=== PATIENT | female | born 1965 | race Caucasian/White ===

== ENCOUNTER → 2017-09-19 | Outpatient (CLI) | payer OTHER ==
--- NOTE | 2017-09-20 09:37 | KCIC ---
DATE: 09/19/2017 EXAM: MAMMO TAYO SCREENING BILATERAL HISTORY: Screening. COMPARISON: 03/02/2016 and 02/27/2015. This study was interpreted with the benefit of Computerized Aided Detection (CAD). FINDINGS: Tiny well-defined densities in both breasts appear stable. No new mass or malignant appearing microcalcifications are seen. There are benign calcifications bilaterally. The axillae are unremarkable. Breast Density: HETERO The breast parenchyma is heterogeneously dense, which could reduce sensitivity of mammography. Breast parenchyma level C. IMPRESSION: No mammographic features suspicious for malignancy are identified. BI-RADS CATEGORY: 2 BENIGN FINDING(S) RECOMMENDED FOLLOW-UP: 12M 12 MONTH FOLLOW-UP PQRS compliance statement: Patient information was entered into a reminder system with a target due date 09/19/2018 for the next mammogram. Mammography is a sensitive method for finding small breast cancers, but it does not detect them all and is not a substitute for careful clinical examination. A negative mammogram does not negate a clinically suspicious finding and should not result in delay in biopsying a clinically suspicious abnormality. "Our facility is accredited by the [employer] Mammography Program."
== END | disposition home or self-care (01) ==
LOC: KCIC MAMMO 16:59
PROVIDERS: ATTEND Obstetrics & Gynecology
DX: Z12.31 Encounter for screening mammogram for malignant neoplasm of breast (principal)
CPT/HCPCS: 77063; G0202; 77067

== ENCOUNTER → 2018-08-17 | Outpatient (CLI) | payer OTHER ==
--- NOTE | 2018-08-17 15:54 | KCIC ---
Indication: Lumbar pain TECHNIQUE: 3 views of the lumbar spine COMPARISON: None FINDINGS: There is very mild levoscoliosis of the upper lumbar spine. There are 5 lumbar type vertebral bodies. Mild loss of anterior superior vertebral body height of L1 vertebral body. Multilevel intervertebral disc space narrowing is seen with small osteophyte formation. Moderate multilevel facet arthropathy. IMPRESSION: 1. Moderate multilevel degenerative disc disease of the lower lumbar spine. 2. Questionable minimal anterior superior compression deformity of the L1 vertebral body, age indeterminate. Electronically signed by: Sideny Slaughter DO (08/17/2018 3:51 PM) [id number]
== END | disposition home or self-care (01) ==
LOC: KCIC 10:57
PROVIDERS: ATTEND Nurse Practitioner Family
DX: M51.36 Other intervertebral disc degeneration, lumbar region (principal); M48.061 Spinal stenosis, lumbar region without neurogenic claudication; M25.78 Osteophyte, vertebrae; M12.88 Other specific arthropathies, not elsewhere classified, other specified site
CPT/HCPCS: 72100

== ENCOUNTER → 2018-08-30 | Outpatient (CLI) | payer OTHER ==
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
== END | disposition home or self-care (01) ==
LOC: KCIC MRI 07:33
PROVIDERS: ATTEND Nurse Practitioner Family
DX: S32.010D Wedge compression fracture of first lumbar vertebra, subsequent encounter for fracture with routine healing (principal); M51.27 Other intervertebral disc displacement, lumbosacral region; M41.86 Other forms of scoliosis, lumbar region; M48.061 Spinal stenosis, lumbar region without neurogenic claudication; M51.34 Other intervertebral disc degeneration, thoracic region; M48.07 Spinal stenosis, lumbosacral region; M12.88 Other specific arthropathies, not elsewhere classified, other specified site; V86.95XD Unspecified occupant of 3- or 4- wheeled all-terrain vehicle (ATV) injured in nontraffic accident, subsequent encounter
CPT/HCPCS: 72148

== ENCOUNTER → 2018-09-07 | Outpatient (CLI) | payer OTHER ==
--- NOTE | 2018-09-07 15:42 | RAD ---
Transabdominal transvaginal sonography of the pelvis Clinical indications: Postmenopausal bleeding. Transabdominal sonography: The uterus is anteverted in position. The longitudinal and AP and transverse dimensions of the uterus are 7.1 cm and 3.6 cm and 5.1 cm respectively. The endometrial canal is poorly visualized. It measures 12 mm in thickness by transabdominal exam which is considered abnormal for postmenopausal patient. The lower portion of the uterus is poorly visualized. Therefore, transvaginal sonography will be performed. The right ovary is not visualized. The left ovary is not visualized. No adnexal mass or free fluid is evident. Transvaginal sonography: The uterus is poorly visualized. The endometrial canal is poorly visualized. Small nabothian cyst of the cervix is evident. There is a 3.1 cm hypoechoic fibroid within the lower left side of the uterus posteriorly just above the cervix. The right ovary is not visualized. The left ovary is normal and measures 1.8 cm and 2.6 cm and 1.6 cm in size. No adnexal mass or free fluid is evident. IMPRESSION: 3.1 cm uterine fibroid. The endometrial canal is poorly visualized in this study. It measures 12 mm in thickness by transabdominal exam which is abnormal for postmenopausal patient. Since the endometrial canal is poorly visualized, noncontrast MRI study of the pelvis may be helpful for further evaluation if clinically needed. The right ovary is not visualized. Electronically signed by: Ronak Hernandez MD (09/07/2018 3:38 PM) [facility]
== END | disposition home or self-care (01) ==
LOC: US 08:13
PROVIDERS: ATTEND Obstetrics & Gynecology
DX: D25.9 Leiomyoma of uterus, unspecified (principal); N88.8 Other specified noninflammatory disorders of cervix uteri
CPT/HCPCS: 76830; 76856

== ENCOUNTER → 2018-11-06 | Outpatient (CLI) | payer OTHER ==
[~2018-11-06] MED LIST: CHOL10003 PO; LORA10CA PO; MAGN400C PO; MULT1TAB52 PO; NAPR220C4 PO; Vitamin B12 inj
--- NOTE | 2018-11-07 16:03 | KCIC ---
Bilateral digital screening mammograms with 3-D tomosynthesis: Reason for examination: Routine screening. Comparison is made to previous studies dated back to 02/27/2015. Bilateral mammograms in CC and oblique projections were obtained with 2-D imaging and 3-D tomosynthesis imaging on a Siemens Inspiration unit and reviewed on the workstation. Interpretation was made with the benefit of CAD. The skin and nipples show no abnormalities. No abnormal axillary lymph nodes are seen. The breast parenchyma shows scattered fatty and fibroglandular density. (Breast density: Category B.) There continues to be a nodular density anterior medially in the left breast which is stable. There is also a tiny nodule consistent with an intramammary lymph node probably at the 9:30 C position of the right breast which is stable. There are no new dominant masses, suspicious calcifications or architectural distortion. Benign calcifications are present. Impression: No evidence of malignancy. Recommend routine screening. BI-RAD Category 2: Benign. "Our facility is accredited by the [employer] Mammography [employer]." This patient's information has been entered into a reminder system for the patient to be notified with the results of her examination and a target date for the next mammogram. Electronically signed by: Mary Leo MD (11/07/2018 3:59 PM) [id number]
== END | disposition home or self-care (01) ==
LOC: KCIC MAMMO 17:19
PROVIDERS: ATTEND Obstetrics & Gynecology
DX: Z12.31 Encounter for screening mammogram for malignant neoplasm of breast (principal)
CPT/HCPCS: 77063; 77067

== ENCOUNTER → 2019-01-24 | Outpatient (CLI) | payer OTHER ==
[~2019-01-24] MED LIST changes: +IOHEXOL 180 MG/ML 10 ML VIAL. ONE; +methylPREDNISolone ACETATE 40 MG/ML VIAL. ONE; +methylPREDNISolone ACETATE 80 MG/ML VIAL. ONE
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
== END | disposition home or self-care (01) ==
LOC: PNCL 07:39
PROVIDERS: ATTEND Anesthesiology
DX: M51.14 Intervertebral disc disorders with radiculopathy, thoracic region (principal); M19.90 Unspecified osteoarthritis, unspecified site; Z98.890 Other specified postprocedural states; Z79.899 Other long term (current) drug therapy; Z88.0 Allergy status to penicillin; Z88.2 Allergy status to sulfonamides; Z83.3 Family history of diabetes mellitus; Z82.49 Family history of ischemic heart disease and other diseases of the circulatory system; Z72.89 Other problems related to lifestyle
CPT/HCPCS: 62321; J1030; J1040; Q9965

== ENCOUNTER → 2019-02-12 | Outpatient (CLI) | payer OTHER ==
[~2019-02-12] MED LIST changes: -IOHEXOL 180 MG/ML 10 ML VIAL. ONE; -methylPREDNISolone ACETATE 40 MG/ML VIAL. ONE; -methylPREDNISolone ACETATE 80 MG/ML VIAL. ONE
--- NOTE | 2019-02-12 20:33 | PAIN ---
DATE OF SERVICE: 02/12/2019 DIAGNOSES: 1. Thoracic radiculopathy with thoracic degenerative disk disease. 2. Lumbar degenerative disk disease with lumbar compression fracture. HISTORY OF PRESENT ILLNESS: The patient is a 53-year-old female who returns for a followup status post thoracic epidural steroid injection x 1 on 01/24/2019. The patient did very well for about 98% improvement in the pain in the mid and upper back. The patient reports she has been increasing activity with greater ease and comfort, sleeping better, doing greater distances walking, doing work activities, household activities with much greater ease and comfort without significant pain involved. The patient reports she is sleeping well at night. The patient reports the pain as a 2 on a scale of 10 at its worse, 1 on average and a 0 at its least and is over the past week and is 0 today. The patient reports no new motor or sensory deficits, no new bowel or bladder incontinence or other complaints. PHYSICAL EXAMINATION: VITAL SIGNS: The patient's blood pressure 130/73, pulse 67, respirations 18, temperature is 98.3 degrees Fahrenheit. Height is 5 feet 9 inches, weight is 259 pounds. GENERAL: The patient is awake, alert, oriented, appropriate, very pleasant demeanor. HEENT: Shows normocephalic, atraumatic. Extraocular movements intact and symmetrical. Oral cavity shows mucous membranes moist and pink. Dentition is intact. NECK: Shows anterior throat is supple without palpable lymphadenopathy noted. Swallow reflex is symmetrical. CHEST: Shows normal on inspection. Breath sounds are clear to auscultation bilaterally. HEART: Shows S1, S2 clear. No murmurs auscultated. ABDOMEN: Soft, nontender, nondistended. No palpable organomegaly is noted. No rebound or guarding demonstrated. MUSCULOSKELETAL: Back shows spine grossly in the midline. Normal appearing thoracic kyphosis. Some slight decrease in curvature of the lumbar distribution. Paraspinous musculature and thoracic distribution shows supple, no significant tenderness, mildly tender only diffusely throughout the middle and upper distribution of thoracic paraspinous muscles. Lumbar paraspinous muscle shows symmetrical with some very mild tenderness, but only to deep palpation bilaterally and only diffusely without radiation. The patient has good rotational motion of thoracic spine both laterally as well as extension and flexion without significant increase in pain. Upper extremities show deep tendon reflexes 2+ in the biceps and triceps tendons. Motor exam is strong with 5/5 [employer] strength, bicep and tricep flexion. PLAN: Options were discussed with the patient. The patient's old chart was reviewed as her current medication regimen and updated. Current review of systems updated today as well and we will hold on any further injections at this time as the patient is doing much better. She would like to wait and we will ask her to increase her activity as tolerated. Encourage to maintain comfortable exercises, stretching and strengthening of the mid back as well. The patient will follow up at this time on an as-needed basis. LILIAN WATTS MD DR: RAMANDEEP/cierra JOB#: [id number] / [id number]
== END | disposition home or self-care (01) ==
LOC: PNCL 07:36
PROVIDERS: ATTEND Anesthesiology
DX: M51.14 Intervertebral disc disorders with radiculopathy, thoracic region (principal); M51.36 Other intervertebral disc degeneration, lumbar region; M48.56XA Collapsed vertebra, not elsewhere classified, lumbar region, initial encounter for fracture
CPT/HCPCS: G0463

== ENCOUNTER → 2019-11-29 | Outpatient (CLI) | payer OTHER ==
--- NOTE | 2019-11-29 17:42 | KCIC ---
MRI Lumbar Spine without contrast History: New pain in the lower thoracic and lumbar spine, history of compression fracture Technique: Multiplanar, multi sequential noncontrast MR imaging was performed of the lumbar spine. Comparison: August 30, 2018 Findings: There is again L1 vertebral body fracture although there has been progression of height loss involving the central and anterior superior vertebral body without osseous retropulsion. There is residual, increased edema signified by STIR hyperintense and T1 hypointense signal of the more central posterior vertebral body, no bony expansion. There is no new separate marrow edema. Conus terminates at the inferior aspect of T12. There is again fairly advanced degenerative disc disease L4-5 and L5-S1 and to a somewhat lesser degree at L3-4, lesser degree of degenerative disc disease of visualized inferior thoracic levels. There is degenerative endplate change at L5-S1. There is mild levoscoliosis centered upon the mid lumbar spine. There is negligible posterior subluxation T12 relative to L1. T10-T11: There is [id number] buckling of the ligamentum flavum and mild facet degenerative change. Spinal canal and neural foramina are not significantly narrowed. T11-12: There is mild buckling of the ligamentum flavum and left facet hypertrophic change. Spinal canal is overall adequate. There is ghta-[id number] posterior narrowing of the left neural foramen and mild narrowing on the right. T12-L1: There is mild buckling of the ligamentum flavum and facet hypertrophic change. There is mild posterior narrowing of the right neural foramen, left neural foramen and spinal canal overall adequate. L1-L2: There is moderate facet hypertrophic change greater on the left and mild buckling of the ligamentum flavum. There is negligible disc osteophyte complex. Spinal canal is adequate. There is fairly severe, left greater than right neural foramina compromise from posteriorly by facets with contact of the exiting L1 nerve roots. L2-L3: There is moderate to severe buckling of the ligamentum flavum. There is moderate to severe right facet degenerative change, to lesser degree on the left. There is negligible bulge. There is moderate left and [id number]-[id number] right posterior neural foramina compromise from facets. Spinal canal is overall adequate. L3-L4: There is again posterior mostly central protrusion about 3 mm AP. There is moderate right facet degenerative change, to lesser degree on the left. There is [id number]-[id number] buckling of the ligamentum flavum. Combination of findings again results in moderate narrowing of the far lateral recesses bilaterally, mild narrowing of the central canal. There is mild neural foramina compromise bilaterally. L4-L5: There is etui-mr-hjlbhjjx facet degenerative change and mild buckling of the ligamentum flavum. There is minimal disc osteophyte complex, spinal canal not significantly narrowed. There is moderate narrowing of the left neural foramen from facet and disc osteophyte complex as seen previously. Right neural foramen is not significantly narrowed. L5-S1: There is again minimal disc osteophyte complex. There is slhx-vy-csmicobh right facet degenerative change, to lesser degree on the left. Spinal canal is overall adequate. There is reqv-wq-mducsufi neural foramina compromise greater on the left in part from facet degenerative change and minimal disc osteophyte complex. Impression: 1. There is again L1 vertebral body fracture as seen on 2018 exam although mild progression of height loss on the right with residual marrow edema greater posteriorly which could be due to acute on chronic fracture. Underlying marrow replacing lesion is considered less likely given known history of trauma, lack of other marrow replacing lesion, and no known history of malignancy. There is no bone expansion. 2. There is again multilevel degenerative disc disease. 3. There is multilevel lumbar neural foramina compromise, more significant narrowing bilaterally at L1-L2, lesser degree of narrowing such as bilaterally at L2-3, on the left at L4-5, and bilaterally at L5-S1. 4. There is moderate narrowing of the far lateral recesses bilaterally at L3-4. Electronically signed by: Onur Cook MD (11/29/2019 5:39 PM) [facility]
== END | disposition home or self-care (01) ==
LOC: KCIC MRI 16:19
PROVIDERS: ATTEND Family Medicine
DX: S32.019A Unspecified fracture of first lumbar vertebra, initial encounter for closed fracture (principal); S23.1 Subluxation and dislocation of thoracic vertebra; M51.37 Other intervertebral disc degeneration, lumbosacral region; M51.34 Other intervertebral disc degeneration, thoracic region; M48.04 Spinal stenosis, thoracic region; M25.78 Osteophyte, vertebrae; M48.061 Spinal stenosis, lumbar region without neurogenic claudication; X58.XXXA Exposure to other specified factors, initial encounter; Y93.89 Activity, other specified; Y92.89 Other specified places as the place of occurrence of the external cause; Y99.8 Other external cause status
CPT/HCPCS: 72148

== ENCOUNTER → 2019-12-11 | Outpatient (CLI) | payer OTHER ==
--- NOTE | 2019-12-11 13:15 | PAIN ---
DATE OF SERVICE: 12/11/2019 PROGRESS NOTE FOR PAIN CLINIC DIAGNOSES: 1. Thoracic radiculopathy with thoracic degenerative disk disease. 2. Lumbar degenerative disk disease with lumbar compression fracture. HISTORY OF PRESENT ILLNESS: The patient is a 54-year-old female who returns for followup status post thoracic epidural steroid injection x 1 that was 01/24/2019, patient did very well with about 98% improvement until the last 2 months or so, the pain began to return in the mid back, radiating bilaterally, more on the left than the right, but present bilaterally with some radiation with activity. The patient reports no new injury or accident. No new changes or motor loss. The patient reports the pain is 8 on a scale of 10 at its worst over the past week, 7 on average, 2 at its least and is 7 today. The patient reports it is aching, burning, and spastic radiating to the left side in the mid to lower thoracic distribution. The patient reports no loss of motor function better with sitting or lying down, awakens her from sleep, but only about once at night. The patient reports before that she was doing much better, was increasing distance walking, doing work activities, household activities. She has started doing some exercise routines as well lately, which she has been tolerating fairly well with the pain also. The patient reports no new motor or sensory deficits, no new changes. PHYSICAL EXAMINATION: VITAL SIGNS: The patient's blood pressure is 143/83, pulse 79, respirations 18, temperature 98.1 degrees Fahrenheit, height is 5 feet 9 inches, weight is 264 pounds. GENERAL: The patient is awake, alert, oriented, appropriate, very pleasant demeanor. HEENT: Shows normocephalic, atraumatic. Extraocular movements are intact and symmetrical. Oral cavity, mucous membranes moist and pink. Dentition is intact. NECK: Shows anterior throat supple without palpable lymphadenopathy noted. Swallow reflex symmetrical. CHEST: Shows normal on inspection. Breath sounds clear to auscultation bilaterally. HEART: Shows S1, S2 clear. No murmurs auscultated. ABDOMEN: Soft, nontender, nondistended. No palpable organomegaly is noted. No rebound or guarding demonstrated. BACK: Shows spine grossly in the midline. Normal appearing thoracic kyphosis and lumbar lordotic curvature with palpation of the thoracic distribution shows some moderate tenderness in the thoracic paraspinous musculature in the lower thoracic distribution, more on the left than the right, which is more firm, but without specific trigger points, without any radiation of pain. The patient shows good rotational motion of both thoracic and lumbar spines. EXTREMITIES: The patient's lower extremities show deep tendon reflexes 2+ in the patellar, 1+ tendo-calcaneus tendons. Motor exam is strong with 5/5 dorsiflexion, extension, quadriceps and hamstring flexion and symmetrical. Peripheral pulses are 1+ posterior tibia. No peripheral edema bilaterally. Options were discussed with the patient. The patient's old chart was reviewed as her current medication regimen updated. Current review of systems updated today as well. We will proceed with preapproval for thoracic epidural steroid injections and has done very well with this in the past, again with some left radicular pain in the T11-T12 distribution. The patient will wait for preauthorization, return to the clinic at that time. We will plan on thoracic epidural steroid injection. LILIAN WATTS MD DR: RAMANDEEP/cierra JOB#: [id number] / [id number]
== END | disposition home or self-care (01) ==
LOC: PNCL 06:05
PROVIDERS: ATTEND Anesthesiology
DX: M48.56XA Collapsed vertebra, not elsewhere classified, lumbar region, initial encounter for fracture (principal); M51.14 Intervertebral disc disorders with radiculopathy, thoracic region; M51.16 Intervertebral disc disorders with radiculopathy, lumbar region
CPT/HCPCS: G0463

== ENCOUNTER → 2020-02-29 | Outpatient (CLI) | payer OTHER ==
[~2020-02-29] MED LIST changes: +IOHEXOL 180 MG/ML 10 ML VIAL. ONE; +LIDOCAINE 1% PF 2 ML VIAL. ONE; +methylPREDNISolone ACETATE 40 MG/ML VIAL. ONE; +methylPREDNISolone ACETATE 80 MG/ML VIAL. ONE
--- NOTE | 2020-02-29 13:04 | PAIN ---
DATE OF SERVICE: 02/29/2020 PROGRESS NOTE FOR PAIN CLINIC DIAGNOSES: 1. Thoracic radiculopathy with thoracic degenerative disk disease. 2. Lumbar degenerative disk disease. HISTORY OF PRESENT ILLNESS: The patient is a 54-year-old female who returns for followup status post thoracic epidural steroid injection x 1 that was in 01/2019. The patient reports 98% improvement for several months after the injection. The patient reports that about 2-3 months ago, the pain began to return in the mid upper back and left side. The patient reports no new motor or sensory deficits, no bowel or bladder incontinence, but still significant pain in the mid to lower back with activity, standing, walking, changing positions. Awakens him from sleep on and off, but not usually anymore frequently than every 6 hours a night. The patient rates her pain as an 8 on a scale of 10 at its worse over the past week, 7 on average and 4 at its least and is a 7 today. The patient reports it is aching, burning, constant, worse with sitting for prolonged periods, twisting or bending of the thoracic spine can make actually feel better. The patient reports it is aching and burning, becoming more constant, again in the midline and in the mid to low back, but into the mid distribution, more to the left than the right. The patient reports no new motor or sensory deficits, no bowel or bladder incontinence or other complaints. PHYSICAL EXAMINATION: VITAL SIGNS: The patient's blood pressure 128/70, pulse 73, respirations 18, temperature 98.3 degrees Fahrenheit, height is 5 feet 9 inches, weight is 267 pounds. GENERAL: The patient is awake, alert, oriented, appropriate, very pleasant demeanor. HEENT: Shows normocephalic, atraumatic. Extraocular movements are intact and symmetrical. Oral cavity: Mucous membranes moist and pink. Dentition is intact. NECK: Shows anterior throat supple without palpable lymphadenopathy noted. Swallow reflex symmetrical. CHEST: Shows normal on inspection. Breath sounds are clear. No rales, rhonchi or wheezes auscultated. HEART: Shows S1, S2 clear. No murmurs auscultated. ABDOMEN: Obese but soft, nontender, nondistended. BACK: Shows spine grossly in the midline. Cervical lordotic curvature, thoracic kyphotic curvature and lumbar lordotic curvature all normal in appearance. Thoracic paraspinous muscle shows some mild tenderness diffusely in the mid to low distribution of the thoracic paraspinous muscles and slightly into the superior medial aspect of the lumbar distribution. The patient shows no trigger points. No atrophy or hypertrophy. No asymmetry, no radiation of pain. The patient has good rotational motion of the thoracic and lumbar spine, both laterally as well as extension and flexion without exact increase in pain. EXTREMITIES: The patient's lower extremities show deep tendon reflexes 2+ in the patellar, 1+ tendo-calcaneus tendons. Motor exam is strong with 5/5 dorsiflexion, extension, quadriceps and hamstring flexion and symmetrical. Peripheral pulses are 1+ posterior tibia. No peripheral edema is noted bilaterally. Options were discussed with the patient. The patient's old chart was reviewed as her current medication regimen updated. Current review of systems updated today as well. We will proceed with a thoracic epidural steroid injection with fluoroscopic guidance today. Risks were again discussed including, but not limited to bleeding, infection, possibility of epidural hematoma, subsequent neurological compromise, dural puncture, headaches, spinal cord and/or nerve damage, side effects of steroid medication and poor results regarding pain control. The patient understands and wished to proceed. The patient will return to clinic in approximately 2 weeks for followup. She was counseled on return appointment, activity level and side effects to be aware of. DIAGNOSES: Thoracic radiculopathy with thoracic degenerative disk disease. PROCEDURE: Thoracic epidural steroid injection, translaminar approach T11-T12 level using C-arm fluoroscopic guidance under sterile prep and drape using local anesthetic. MEDICATION INJECTED: A total of 120 mg Depo-Medrol plus 10 mL preservative-free normal saline and 2 mL of contrast. CONDITION AT DISCHARGE: Stable. The patient tolerated the procedure well, had no complications. LILIAN WATTS MD DR: RAMANDEEP/cierra JOB#: [id number] / [id number]
== END ==
LOC: PNCL 11:33
PROVIDERS: ATTEND Anesthesiology
DX: M51.14 Intervertebral disc disorders with radiculopathy, thoracic region (principal)
CPT/HCPCS: 62321; J1030; J1040; J3490; Q9965

== ENCOUNTER → 2020-07-18 | Outpatient (CLI) | payer OTHER ==
[~2020-07-18] MED LIST changes: -IOHEXOL 180 MG/ML 10 ML VIAL. ONE; -LIDOCAINE 1% PF 2 ML VIAL. ONE; +MULT-445 PO; -MULT1TAB52 PO; -methylPREDNISolone ACETATE 40 MG/ML VIAL. ONE; -methylPREDNISolone ACETATE 80 MG/ML VIAL. ONE
--- NOTE | 2020-07-18 12:51 | KCIC ---
Bilateral digital screening mammograms with 3-D tomosynthesis: Reason for examination: Routine screening. Comparison is made to previous studies dated back to 02/27/2015. Bilateral mammograms in CC and oblique projections were obtained with 2-D imaging and 3-D tomosynthesis imaging on a Siemens Inspiration unit and reviewed on the workstation. Interpretation was made with the benefit of CAD. The skin and nipples show no abnormalities. No abnormal axillary lymph nodes are seen. The breast parenchyma shows scattered fatty and fibroglandular density. (Breast density: Category B.) There continues be a small nodular density anteriorly at the 9:00 position of the left breast which is stable. There are no new dominant masses, suspicious calcifications or architectural distortion. Benign calcifications are present. Impression: No evidence of malignancy. Recommend routine screening. BI-RAD Category 2: Benign. "Our facility is accredited by the [employer] Mammography Program." This patient's information has been entered into a reminder system for the patient to be notified with the results of her examination and a target date for the next mammogram. Electronically signed by: Mary Leo MD (07/18/2020 12:48 PM) [id number]
== END ==
LOC: KCIC MAMMO 08:04
PROVIDERS: ATTEND Obstetrics & Gynecology
DX: Z12.31 Encounter for screening mammogram for malignant neoplasm of breast (principal); N64.89 Other specified disorders of breast
CPT/HCPCS: 77063; 77067

== ENCOUNTER → 2020-10-10 | Outpatient (CLI) | payer OTHER ==
--- NOTE | 2020-10-10 11:59 | KCIC ---
EXAM: Left knee, 3 views. HISTORY: Pain. COMPARISON: None. FINDINGS: 3 views of the left knee are obtained. There is patellofemoral compartment predominant tric ompartmental joint space narrowing and moderate tricuspid bilateral spurring. There is partial visual ization of suspected healed tibial and fibular diaphyseal fractures, with associated screws within th e tibial diaphysis. There aren't multiple soft tissue clips and soft tissue calcifications. There is no joint effusion. IMPRESSION: Severe patellofemoral compartment and moderate medial and lateral compartment tricompartm ental osteoarthritis of the left knee. Electronically signed by: Dennise Harris MD (10/10/2020 11:53 AM) [id number]
--- NOTE | 2020-10-10 13:54 | KCIC ---
Examination: MRI of the left knee History: History of left knee pain COMPARISON: None available TECHNIQUE: Multiplanar, multisequence MR imaging of the left knee was performed without contrast. FINDINGS: The anterior cruciate ligament, posterior cruciate ligament appears intact. The medial, lateral menis cus appears intact. The medial collateral appears intact. Lateral collateral ligamentous complex incl uding the fibular collateral ligament, biceps femoris tendon, popliteus and appear intact. The extensor mechanism is intact There is severe joint space loss identified in the medial, lateral, patellofemoral compartments with large osteophyte formation likely degenerative changes. Multiple subchondral cystic changes identifie d in the patella and the anterior aspect of the lateral femoral condyle likely degenerative cysts. Mu ltiple cystic structures identified in the medial femoral condyle likely degenerative cysts. The medial, lateral retinaculum appears intact. IMPRESSION: 1. Severe tricompartmental degenerative changes. 2. Small knee joint effusion. Electronically signed by: Gary Guerrier MD (10/10/2020 1:50 PM) [id number]
== END ==
LOC: KCIC MRI 10:02
PROVIDERS: ATTEND Nurse Practitioner Gerontology
DX: M17.12 Unilateral primary osteoarthritis, left knee (principal); M25.462 Effusion, left knee; M25.762 Osteophyte, left knee; M76.892 Other specified enthesopathies of left lower limb, excluding foot
CPT/HCPCS: 73562; 73721

== ENCOUNTER → 2020-11-24 | Outpatient (CLI) | payer OTHER ==
[~2020-11-24] MED LIST changes: +IOHEXOL 180 MG/ML 10 ML VIAL. ONE; +methylPREDNISolone ACETATE 40 MG/ML VIAL. ONE; +methylPREDNISolone ACETATE 80 MG/ML VIAL. ONE
--- NOTE | 2020-11-24 08:43 | PDOC ---
Progress Note - Pain Clinic Date of Service: DOS: DATE: 11/24/20 TIME: 08:38 Diagnosis: Dx: Thoracic radiculopathy with thoracic degenerative disc disease Lumbar degenerative disc disease with lumbar compression fracture History or Present Illness: HPI: 55-year-old female returns in follow-up status post thoracic epidural steroid injection x1 February 29, 2020. Patient reports she did very well about 90% improvement for good 6 months after the injection the pain is returning now over the past few months reports he should have gotten in sooner because the pain was getting worse with time but has had some other conflicting scheduling issues and is now returned today with complaints of pain in the mid back upper back radiating bilaterally but not into the lower extremities. Patient reports her pain is an 8 on scale 10 is worse over the past week 7 on average for its least is a 7 today. Patient ports aching and burning on and off in intensity in the mid back itself worse with activity standing walking positions better with sitting or laying down generally does not awaken her from sleep at night. Patient reports no new motor or sensory deficits no new bowel or bladder incontinence or other complaints. Physical Exam: VS: Blood pressure is 136/81 pulse 67 respirations 18 temperature is 98.2 F height is 5 feet 9 inches weight 276 pounds PE: PHYSICAL EXAMINATION: GENERAL: The patient is awake, alert, oriented, appropriate, very pleasant demeanor HEENT: Shows normocephalic, atraumatic. Extraocular movements are intact and symmetrical. Oral cavity: Mucous membranes moist and pink. Dentition is intact. NECK: Shows anterior throat supple without palpable lymphadenopathy noted. Swallow reflex symmetrical. CHEST: Shows normal on inspection. Breath sounds are clear bilaterally, no rales or rhonchi. HEART: Shows S1, S2 clear. No murmurs auscultated. ABDOMEN: Soft, nontender, nondistended, obese. No palpable organomegaly is noted. No rebound or guarding demonstrated. BACK: Shows spine grossly in the midline. Normal-appearing cervical lordotic curvature. There is slightly increased thoracic kyphosis, some minor flattening of the lumbar lordotic curvature. Lumbar paraspinous muscles show symmetrical on inspection, on palpation shows some moderate tenderness diffusely throughout the upper, middle and lower distribution of the paraspinous muscles bilaterally and also into the lower and mid thoracic paraspinous musculature, firm and tender bilaterally without asymmetry without specific trigger points but very firm tender musculature in the thoracic paraspinous distribution bilaterally without radiation. The patient has good rotational motion of the lumbar and thoracic spine, both laterally as well as extension and flexion without signif icant difficulty. No tenderness over the spinous processes, sacrum or sacroiliac regions. EXTREMITIES: Lower extremities show deep tendon reflexes 2+ in the patellar and tendo calcaneus tendons. Motor exam is 5 on a scale of 5 with right dorsiflexion, extension, quadriceps and hamstring flexion and 5/5 on the left. Peripheral pulses are 1 posterior tibial. No peripheral edema is noted bilaterally. Lower extremities are warm and dry to touch, equal in color and appearance. SKIN: Shows warm and dry, good turgor. No edema. No sores, rashes or bruising throughout. Procedure: Procedure: Options discussed with the patient. Patient will chart reviews her current medication regimen updated current review of systems updated today as well. We will proceed with a thoracic epidural steroid injection today with fluoroscopic guidance. Risks were discussed including but not limited to: Bleeding, infection, possibility of epidural hematoma and subsequent neurological compromise, dural puncture, headaches, spinal cord and/or nerve damage, side effects of steroid medication, and poor results regarding pain control. Patient understands and wished to proceed. Patient will return to clinic in approximately 2 weeks or as necessary would like to call for next appointment. Patient was counseled as to return appointment activity level and side effects to be aware of. Medication Injected: Med Injected: Procedure is thoracic epidural steroid injection under local anesthetic using sterile prep and drape at the T11-12 level using C-arm fluoroscopic guidance in both AP and lateral views medications injected is 120 mg Depo-Medrol + 10 mL preservative-free normal saline and 2 mL contrast- condition at discharge is stable patient tolerated procedure well had no complications. Condition at Discharge: Condition at Discharge: Condition at discharge stable, patient tolerated procedure well and had no complications. LILIAN WATTS MD Nov 24, 2020 08:43
--- NOTE | 2020-11-24 08:44 | PDOC4 ---
PROCEDURE Procedure Patient was consented for thoracic epidural steroid injection. Risks were d iscussed including but not limited to: Bleeding, infection, possibility of epidural hematoma and subsequent neurological compromise, dural puncture, headaches, spinal cord and/or nerve damage, side effects of steroid medication, and poor results regarding pain control. Patient understands and wished to proceed. Procedure is thoracic epidural steroid injection under local anesthetic using sterile prep and drape at the T11-12 level using C-arm fluoroscopic guidance in both AP and lateral views medications injected is 120 mg Depo-Medrol + 10 mL preservative-free normal saline and 2 mL contrast- condition at discharge is stable patient tolerated procedure well had no complications. LILIAN WATTS MD Nov 24, 2020 08:44
== END | disposition home or self-care (01) ==
LOC: PNCL 08:08
PROVIDERS: ATTEND Anesthesiology
DX: M51.14 Intervertebral disc disorders with radiculopathy, thoracic region (principal); M51.16 Intervertebral disc disorders with radiculopathy, lumbar region; M48.56XA Collapsed vertebra, not elsewhere classified, lumbar region, initial encounter for fracture; Z79.899 Other long term (current) drug therapy; Z88.0 Allergy status to penicillin; Z88.2 Allergy status to sulfonamides
CPT/HCPCS: 62321; J1030; J1040; Q9965

== ENCOUNTER → 2021-01-15 | Outpatient (CLI) | payer OTHER ==
[~2021-01-15] MED LIST changes: -IOHEXOL 180 MG/ML 10 ML VIAL. ONE; -methylPREDNISolone ACETATE 40 MG/ML VIAL. ONE; -methylPREDNISolone ACETATE 80 MG/ML VIAL. ONE
[2021-01-15 08:20] LABS: ALBUMIN 3.4 g/dL (3.4-5.0); CALCIUM 8.8 mg/dL (8.5-10.1); CREATININE 0.8 mg/dL (0.6-1.0); GFR 74.2; POTASSIUM 4.3 mmol/L (3.5-5.1); TOTAL BILIRUBIN 0.6 mg/dL (0.2-1.0); TOTAL PROTEIN 6.8 g/dL (6.4-8.2)
[2021-01-15 08:22] LABS: CHOLESTEROL/HDL RATIO 3.6
== END ==
LOC: LAB 07:39
PROVIDERS: ATTEND Internal Medicine Cardiovascular Disease
DX: R07.9 Chest pain, unspecified (principal)
CPT/HCPCS: 36415; 80053; 80061; 83721

== ENCOUNTER → 2021-05-06 | Outpatient (CLI) | payer OTHER ==
[~2021-05-06] MED LIST changes: +IOHEXOL 180 MG/ML 10 ML VIAL. ONE; +methylPREDNISolone ACETATE 40 MG/ML VIAL. ONE; +methylPREDNISolone ACETATE 80 MG/ML VIAL. ONE
--- NOTE | 2021-05-06 08:17 | PDOC ---
Progress Note - Pain Clinic Date of Service: DOS: DATE: 05/06/21 TIME: 08:12 Diagnosis: Dx: Thoracic radiculopathy with thoracic degenerative disc disease Lumbar compression fracture L1 with lumbar degenerative disc disease History or Present Illness: HPI: 55-year-old female returns for follow-up last seen November 24, 2020 had thoracic epidural steroid injection at time with very good results but 90% improvement for about 4 months patient reports pain is returning now over the past few weeks in the mid back upper back some rating to the low back as well but mostly in the mid back itself patient report is worse with positional changes sitting for prolonged periods standing walking and bending patient report is 8 on scale 10 is worse over the past week 7 on average for its least is a 7 today patient reports burning aching radiating in the low back itself radiating laterally along the rib cage in the inferior aspect of the ribs bilaterally at times as well. Patient reports it generally does not awaken her from sleep at night better with laying down or sitting still sitting for more than 30 to 40 minutes can exacerbate the pain as well changing positions. Patient reports no new motor or sensory deficits no bowel or bladder incontinence. Physical Exam: VS: Blood pressure is 129/80 pulse 68 respirations 16 temperature 98.1 F height is 5 feet 9 inches weight is 266 pounds PE: PHYSICAL EXAMINATION: GENERAL: The patient is awake, alert, oriented, appropriate, very pleasant in demeanor. HEENT: Shows normocephalic, atraumatic. Extraocular movements are intact and symmetrical. Oral cavity: Mucous membranes moist and pink. Dentition is intact. NECK: Shows anterior throat supple without palpable lymphadenopathy noted. Swallow reflex symmetrical. CHEST: Shows normal on inspection. Breath sounds are clear bilaterally, distant but no rales rhonchi or wheezes auscultated. HEART: Shows S1, S2 clear. No murmurs auscultated. ABDOMEN: Soft, nontender, nondistended, obese. No palpable organomegaly is noted. BACK: Shows spine grossly in the midline. Normal-appearing cervical lordotic curvature. There is slightly increased thoracic kyphosis, some minor flattening of the lumbar lordotic curvature. Lumbar paraspinous muscles show symmetrical on inspection, on palpation shows some moderate tenderness diffusely throughout the upper, middle and lower distribution of the paraspinous muscles, but without specific trigger points, without radiation of pain. The patient has good rotational motion of the lumbar spine, both laterally as well as extension and flexion with moderate tenderness with extension and more in the thoracic distribution but without radiation better with forward flexion without significant pain reported. EXTREMITIES: Lower extremities show deep tendon reflexes 2+ in the patellar and tendo calcaneus tendons. Motor exam is 5 on a scale of 5 with right d orsiflexion, extension, quadriceps and hamstring flexion and 5/5 on the left. Peripheral pulses are 1 posterior tibial. No peripheral edema is noted bilaterally. Lower extremities are warm and dry to touch, equal in color and appearance. SKIN: Shows warm and dry, good turgor. No edema. No sores, rashes or bruising throughout. Procedure: Procedure: Options discussed with the patient. Patient's old chart reviews her current medication regimen updated current review of systems updated today as well. We will proceed with thoracic epidural steroid injection today with fluoroscopic guidance. Risks were discussed including but not limited to: Bleeding, infection, possibility of epidural hematoma and subsequent neurological compromise, dural puncture, headaches, spinal cord and/or nerve damage, side effects of steroid medication, and poor results regarding pain control. Patient understands and wished to proceed. Patient return to clinic in approximately 2 weeks for follow-up, was counseled as return appointment to fill and side effects to be aware of. Medication Injected: Med Injected: Procedure is thoracic epidural steroid injection under local anesthetic using sterile prep and drape at the T11-12 level using C-arm fluoroscopic guidance in both AP and lateral views medications injected is 120 mg Depo-Medrol +10mL pre servative-free normal saline and 2 mL contrast- condition at discharge is stable patient tolerated procedure well had no complications. Condition at Discharge: Condition at Discharge: Condition at discharge stable, patient already the procedure well and had no complications. LILIAN WATTS MD May 06, 2021 08:17
--- NOTE | 2021-05-06 08:18 | PDOC4 ---
Procedure Note: ICD 10 Code: ICD 10 Code: M54.14 M51.34 Procedure Note: Patient was consented for thoracic epidural steroid injection. Risks were discussed including but not limited to: Bleeding, infection, possibility of epidural hematoma and subsequent neurological compromise, dural puncture, headaches, spinal cord and/or nerve damage, side effects of steroid medication, and poor results regarding pain control. Patient understands and wished to proceed. Procedure is thoracic epidural steroid injection under local anesthetic using sterile prep and drape at the T11-12 level using C-arm fluoroscopic guidance in both AP and lateral views medications injected is 120 mg Depo-Medrol +10mL preservative-free normal saline and 2 mL contrast- condition at discharge is stable patient tolerated procedure well had no complications. LILIAN WATTS MD May 06, 2021 08:17
== END ==
LOC: PNCL 07:37
PROVIDERS: ATTEND Anesthesiology
DX: M51.14 Intervertebral disc disorders with radiculopathy, thoracic region (principal)
CPT/HCPCS: 62321; J1030; J1040; Q9965; 62323

== ENCOUNTER → 2021-07-31 | Outpatient (CLI) | payer OTHER ==
[~2021-07-31] MED LIST changes: -IOHEXOL 180 MG/ML 10 ML VIAL. ONE; -methylPREDNISolone ACETATE 40 MG/ML VIAL. ONE; -methylPREDNISolone ACETATE 80 MG/ML VIAL. ONE
--- NOTE | 2021-07-31 11:22 | KCIC ---
Bilateral digital screening mammograms with 3-D tomosynthesis: Reason for examination: Routine screening. Comparison is made to previous studies dated back to 02/27/2015. Bilateral mammograms in CC and oblique projections were obtained with 2-D imaging and 3-D tomosynthes is imaging on a [employer] unit and reviewed on the workstation. Interpretation was made with the benefit of CAD. The skin and nipples show no abnormalities. No abnormal axillary lymph nodes are seen. The breast par enchyma is predominantly fatty. (Breast density: Category A.) There continues to be a small nodular p arenchymal density anterior medially in the left breast. There are no new dominant masses, suspicious calcifications or architectural distortion. Benign calcifications are again seen bilaterally. Impression: No evidence of malignancy. Recommend routine screening. BI-RAD Category 2: Benign. "Our facility is accredited by the [employer] Mammography Program." This patient's information has been entered into a reminder system for the patient to be notified wit h the results of her examination and a target date for the next mammogram. Electronically signed by: Mary Leo MD (07/31/2021 11:19 AM) [id number]
== END ==
LOC: KCIC MAMMO 08:51
PROVIDERS: ATTEND Obstetrics & Gynecology
DX: Z12.31 Encounter for screening mammogram for malignant neoplasm of breast (principal)
CPT/HCPCS: 77063; 77067

== ENCOUNTER → 2021-07-31 | Outpatient (CLI) | payer OTHER ==
--- NOTE | 2021-07-31 11:14 | KCIC ---
EXAM: Pelvis and right hip, 2 views. HISTORY: Pain. COMPARISON: None. FINDINGS: A frontal view of the pelvis and frog-leg view the right hip are obtained. There is no frac ture, dislocation or subluxation. There is minimal bilateral hip osteoarthritis. There is lumbar scol iosis and degenerative change of the lower lumbar levels. There is a gastric lap band reservoir and c atheter overlying the left abdomen. IMPRESSION: Mild bilateral hip osteoarthritis. No acute osseous finding. Electronically signed by: Dennise Harris MD (07/31/2021 11:11 AM) [id number]
--- NOTE | 2021-07-31 11:15 | KCIC ---
EXAM: Lumbar spine, 3 views. HISTORY: Pain. COMPARISON: None. FINDINGS: 3 views of the lumbar spine are obtained. There is lumbar levoscoliosis centered at L1-L2. There is a chronic mild to moderate anterior wedge compression fracture with prominent superior endpl ate Schmorl's node at L1. There is mild multilevel listhesis. There is degenerative endplate remodeli ng with disc space narrowing and spurring at all levels. There is relative preservation of the disc s paces at L1-L2 at L2-L3. There is facet arthropathy predominantly the lower lumbar levels. There is a gastric lap band overlying expected position. There is mild bilateral hip osteoarthritis. IMPRESSION: 1. Multilevel degenerative change, described in detail above. 2. Lumbar scoliosis 3. Chronic mild to moderate wedge compression fracture of L1. Electronically signed by: Dennise Harris MD (07/31/2021 11:13 AM) [id number]
== END ==
LOC: KCIC 08:56
PROVIDERS: ATTEND Nurse Practitioner Gerontology
DX: S32.010A Wedge compression fracture of first lumbar vertebra, initial encounter for closed fracture (principal); M47.816 Spondylosis without myelopathy or radiculopathy, lumbar region; M51.46 Schmorl's nodes, lumbar region; M16.0 Bilateral primary osteoarthritis of hip; M41.86 Other forms of scoliosis, lumbar region; X58.XXXA Exposure to other specified factors, initial encounter; Y93.89 Activity, other specified; Y92.89 Other specified places as the place of occurrence of the external cause; Y99.8 Other external cause status
CPT/HCPCS: 72100; 73501